=== PATIENT | female | born 1985 | race Caucasian/White ===

== ENCOUNTER 2016-11-06 06:00 | Day surgery (SDC) | payer OTHER ==
[~2016-11-06] VITALS: Ht 160 cm; Wt 81.6 kg
[2016-11-06] MEDS ORDERED: ALBU0.63 NEB (06:46)
[2016-11-06] MEDS ORDERED: ALBU4TAB59 PO (06:46)
[2016-11-06] MEDS ORDERED: DEXAMETHASONE 4 MG/ML VIAL ONE (07:25)
[2016-11-06] MEDS ORDERED: PROPOFOL 200 MG/20 ML VIAL IV ONE (07:25)
[2016-11-06] MEDS ORDERED: SUCCINYLCHOLINE CHLORIDE 200 MG/10 ML VIAL IVP ONE (07:25)
[2016-11-06] MEDS ORDERED: ONDANSETRON 4 MG/2 ML VIAL ONE (07:25)
[2016-11-06] MEDS ORDERED: SEVOFLURANE 250 ML BTL INH ONE (07:25)
[2016-11-06] MEDS ORDERED: BUPIVACAINE-MPF/EPI 0.5% 30 ML VIAL INJ ONE (07:34)
[2016-11-06] MEDS ORDERED: MEPERIDINE 50 MG/ML SYR ONE (07:35)
[2016-11-06] MEDS ORDERED: MIDAZOLAM 2 MG/2 ML VIAL ONE (07:35)
[2016-11-06] MEDS ORDERED: fentaNYL 0.05 MG/ML VIAL ONE (07:35)
[2016-11-06] MEDS ORDERED: MEPERIDINE 25 MG/ML SYR IVP PRN (07:55)
[2016-11-06] MEDS ORDERED: ONDANSETRON 4 MG/2 ML VIAL IVP PRN ×2 (07:55→08:15)
[2016-11-06] MEDS ORDERED: LACTATED RINGERS 1,000 ML IV SCH (07:55)
[2016-11-06] MEDS ORDERED: diphenhydrAMINE 50 MG/ML VIAL IVP PRN (07:55)
[2016-11-06] MEDS ORDERED: ACETAMINOPHEN/CODEINE 300/30MG 1 TAB PO PRN (08:15)
[2016-11-06] MEDS ORDERED: IBUPROFEN 800 MG TAB PO PRN (08:15)
[2016-11-06] MEDS ORDERED: MORPHINE SULFATE 4 MG/ML SYR IM/IVP PRN (08:15)
[2016-11-06] MEDS: HYDROmorphone 1 MG/ML AMP IVP PRN ×4 (08:30→09:00)
[2016-11-06] MEDS ORDERED: HYDROmorphone PFS 2 MG/ML SYR ONE (08:40)
== END 2016-11-06 12:15 | disposition home or self-care (01) ==
LOC: MDS 06:00 → MMU 06:00 → MDS 12:15
PROVIDERS: ATTEND Obstetrics & Gynecology
DX: N80.9 Endometriosis, unspecified (principal); N73.6 Female pelvic peritoneal adhesions (postinfective); J45.909 Unspecified asthma, uncomplicated; D64.9 Anemia, unspecified; F41.9 Anxiety disorder, unspecified; Z72.0 Tobacco use
CPT/HCPCS: 58662; 71010; 82374; J0690; J1170; J2175; J2250; J2270; J3010; J3490; J7060; J0330; J1100; J2405; J2704; J7120